=== PATIENT | female | born 1985 | race Caucasian/White ===

== ENCOUNTER 2019-04-23 09:31 | Emergency (ER) | payer BC ==
[~2019-04-23] VITALS: Ht 160 cm; Wt 84.5 kg
[2019-04-23 09:36] VITALS: BP 126/66; TEMP 97.6
[2019-04-23] MEDS ORDERED: GLUCOPHAGE1000 MG PO (09:59)
[2019-04-23] MEDS ORDERED: TYLENOL 325MG325 MG PO (10:00)
[2019-04-23] MEDS ORDERED: PRENATAL (10:00)
[2019-04-23 12:07] VITALS: PULSE 101
== END 2019-04-23 12:07 | disposition home or self-care (01) ==
LOC: COL.ER 09:31
DX: O99.351 Diseases of the nervous system complicating pregnancy, first trimester (principal); G43.909 Migraine, unspecified, not intractable, without status migrainosus; Z79.82 Long term (current) use of aspirin; Z3A.10 10 weeks gestation of pregnancy; Z79.84 Long term (current) use of oral hypoglycemic drugs
CPT/HCPCS: J1200

== ENCOUNTER 2019-06-09 01:06 | Emergency (ER) | payer BC ==
[~2019-06-09] VITALS: Ht 160 cm; Wt 83.2 kg
[~2019-06-09 01:06] MED LIST: GLUCOPHAGE1000 MG PO; PRENATAL; TYLENOL 325MG325 MG PO
[2019-06-09 01:20] VITALS: TEMP 97.4
[2019-06-09 01:48] LABS: COLLECTION METHOD CLEAN CATCH
[2019-06-09 01:55] LABS: MUCOUS Present /lpf; PH 5 (5-8); URINE APPEARANCE Cloudy; URINE BACTERIA Rare /hpf; URINE BILIRUBIN Negative (NEGATIVE); URINE BLOOD 3+ (NEGATIVE); URINE COLOR Yellow; URINE GLUCOSE Negative (NEGATIVE); URINE KETONE 1+ (NEGATIVE); URINE LEUKOCYTE ESTERASE Trace (NEGATIVE); URINE NITRATE Negative (NEGATIVE); URINE PROTEIN(semi-quant) 2+ (NEGATIVE); URINE RBC >50 /hpf; URINE UROBILINOGEN Negative (NEGATIVE)
[2019-06-09 02:08] LABS: BASO # 0.1 (0.0-0.2); BASO % 0.4 % (0.0-2.0); EOS # 0.1 (0.0-0.7); EOS % 0.6 % (0-4.0); GRAN # 10.6 (1.4-6.5); GRAN % 73.3 % (42.2-75.2); HEMATOCRIT 38.5 % (37.0-47.0); HEMOGLOBIN 12.5 g/dl (12.5-16.0); LYMPH # 2.8 (1.2-3.4); LYMPH % 19.4 % (20.0-51.0); MEAN CELL VOLUME 75 fl (80.0-100.0); MEAN CORPUSCULAR HEMOGLOBIN 24 pg (27.0-31.0); MEAN CORPUSCULAR HGB CONC 33 g/dl (33.0-37.0); MEAN PLATELET VOLUME 10.7 fl (7.4-10.4); MONO # 0.8 (0.1-0.6); MONO % 5.4 % (1.7-9.3); PLATELET COUNT 281 K/mm3 (130-400); RED BLOOD COUNT 5.13 M/mm3 (4.10-5.30); REDCELL DISTRIBUTION WIDTH-CV 13.8 % (11.5-14.5)
[2019-06-09 02:16] LABS: CREATININE, serum 0.38 (0.52-1.25); POTASSIUM 3.2 mmol/L (3.4-5.0)
[2019-06-09] MEDS ORDERED: OMNICEF 300MG300 MG PO (02:23)
[2019-06-09 02:46] VITALS: BP 138/80; PULSE 88
== END 2019-06-09 02:58 | disposition home or self-care (01) ==
LOC: COL.ER 01:06
PROVIDERS: Physician Assistant
DX: O26.892 Other specified pregnancy related conditions, second trimester (principal); N30.90 Cystitis, unspecified without hematuria; Z3A.16 16 weeks gestation of pregnancy
CPT/HCPCS: J0696

== ENCOUNTER 2019-06-23 11:56 | Emergency (ER) | payer BC ==
[~2019-06-23] VITALS: Ht 160 cm; Wt 82.7 kg
[~2019-06-23 11:56] MED LIST changes: +OMNICEF 300MG300 MG PO
[2019-06-23 12:31] VITALS: BP 128/74; TEMP 98
[2019-06-23 12:51] LABS: COLLECTION METHOD CLEAN CATCH
[2019-06-23 13:01] LABS: MUCOUS Present /lpf; PH 5 (5-8); SQUAMOUS EPITHELIAL 0-2 /hpf; URINE APPEARANCE Clear; URINE BACTERIA None Seen /hpf; URINE BILIRUBIN Negative (NEGATIVE); URINE BLOOD Negative (NEGATIVE); URINE COLOR Yellow; URINE GLUCOSE Negative (NEGATIVE); URINE KETONE Trace (NEGATIVE); URINE LEUKOCYTE ESTERASE Negative (NEGATIVE); URINE NITRATE Negative (NEGATIVE); URINE PROTEIN(semi-quant) Negative (NEGATIVE); URINE RBC 0-2 /hpf; URINE UROBILINOGEN Negative (NEGATIVE)
[2019-06-23 13:24] LABS: HEMOGLOBIN 13.5 g/dl (12.5-16.0); MEAN CELL VOLUME 76 fl (80.0-100.0); MEAN CORPUSCULAR HEMOGLOBIN 25 pg (27.0-31.0); MEAN CORPUSCULAR HGB CONC 32 g/dl (33.0-37.0); MEAN PLATELET VOLUME 11.1 fl (7.4-10.4); PLATELET COUNT 308 K/mm3 (130-400); RED BLOOD COUNT 5.51 M/mm3 (4.10-5.30); REDCELL DISTRIBUTION WIDTH-CV 13.7 % (11.5-14.5)
[2019-06-23 13:33] LABS: ALBUMIN 4.1 gm/dL (3.5-5.0); BILIRUBIN,TOTAL 0.8 mg/dL (0.0-1.0); CALCIUM 8.7 mg/dL (8.4-10.2); CREATININE, serum 0.43 (0.52-1.25); POTASSIUM 4.1 mmol/L (3.4-5.0); TOTAL PROTEIN 7.8 gm/dL (6.4-8.2)
[2019-06-23 14:18] LABS: BAND 27 % (0-10); LYMPHOCYTE 2 % (20.0-51.0); NEUTROPHILS 67 % (42.0-75.2)
[2019-06-23 14:19] LABS: PLATELET ESTIMATE NORMAL (NORMAL)
[2019-06-23] MEDS ORDERED: ZOFRAN ODT4 MG PO (14:44)
[2019-06-23 15:06] VITALS: PULSE 93
== END 2019-06-23 15:06 | disposition home or self-care (01) ==
LOC: COL.ER 11:56
PROVIDERS: Emergency Medicine
DX: O21.9 Vomiting of pregnancy, unspecified (principal); O24.112 Pre-existing type 2 diabetes mellitus, in pregnancy, second trimester; Z79.84 Long term (current) use of oral hypoglycemic drugs; Z3A.18 18 weeks gestation of pregnancy
CPT/HCPCS: J2550; J7030

== ENCOUNTER → 2019-08-16 | Outpatient (CLI) | payer BC, MEDICAID ==
[~2019-08-16] MED LIST changes: +BASAGLAR K100 UNIT/1 SQ; +NOVOLOG FLEX100 U/ML SQ; +ZOFRAN ODT4 MG PO
== END ==
LOC: DIA.ED 13:35
DX: O24.419 Gestational diabetes mellitus in pregnancy, unspecified control (principal); Z79.4 Long term (current) use of insulin
CPT/HCPCS: G0108

== ENCOUNTER 2019-10-07 12:27 | Outpatient (CLI) | payer BC, MEDICAID ==
[2019-10-07] VITALS (18 sets, daily range): BP systolic 145–174; BP diastolic 68–90; PULSE 64–101; TEMP 97.6
[~2019-10-07] VITALS: Ht 160 cm; Wt 90.7 kg
--- NOTE | 2019-10-07 12:45 | NUR ---
G1 at 33.3 weeks gestation to LDR4 with c/o increased blood pressure at home and left sided arm pain and generalized body pain. Patient reports good movement and denies leaking of fluid or vaginal bleeding. Patient is an IDGDM. Patient states that she recieved betamethosone in the office on 10/02 and 10/03 and that she was prescribed bethamethasone for home use that she picked up from the pharmacy today. She states that she gave herself 1 mg of bethamethasone with her insulin needle around 9389-0499 today in her left arm. She states that she wasn't given instructions on how to use this medication at home. EFMs explained and applied. FHR reactive. No CTX per toco or patient reports. Blood pressure 155/74 with a repeat of 148/68. Dr. Miranda called and updated on the above. Orders for a CBC, CMP and CC UA received. Instruct patient to stop bethamethasone.
[2019-10-07 13:35] LABS: COLLECTION METHOD CLEAN CATCH
[2019-10-07 13:39] LABS: HEMOGLOBIN 11.9 g/dl (12.5-16.0); MEAN CELL VOLUME 77 fl (80.0-100.0); MEAN CORPUSCULAR HEMOGLOBIN 25 pg (27.0-31.0); MEAN CORPUSCULAR HGB CONC 32 g/dl (33.0-37.0); MEAN PLATELET VOLUME 11.3 fl (7.4-10.4); PLATELET COUNT 212 K/mm3 (130-400); RED BLOOD COUNT 4.78 M/mm3 (4.10-5.30); REDCELL DISTRIBUTION WIDTH-CV 14.7 % (11.5-14.5)
[2019-10-07 13:41] LABS: HEMATOCRIT 36.7 % (37.0-47.0)
[2019-10-07 13:46] LABS: PH 6 (5-8); SQUAMOUS EPITHELIAL 0-2 /hpf; URINE APPEARANCE Clear; URINE BACTERIA Rare /hpf; URINE BILIRUBIN Negative (NEGATIVE); URINE BLOOD Negative (NEGATIVE); URINE COLOR Straw; URINE GLUCOSE Negative (NEGATIVE); URINE KETONE Negative (NEGATIVE); URINE LEUKOCYTE ESTERASE Negative (NEGATIVE); URINE NITRATE Negative (NEGATIVE); URINE PROTEIN(semi-quant) Negative (NEGATIVE); URINE RBC 0-2 /hpf; URINE UROBILINOGEN Negative (NEGATIVE); URINE WBC 0-2 /hpf
[2019-10-07 13:47] LABS: ALBUMIN 3.3 gm/dL (3.5-5.0); BILIRUBIN,TOTAL 0.5 mg/dL (0.0-1.0); CALCIUM 8.3 mg/dL (8.4-10.2); CREATININE, serum 0.58 (0.52-1.25); TOTAL PROTEIN 6.4 gm/dL (6.4-8.2)
--- NOTE | 2019-10-07 16:28 | NUR ---
EMS at bedside. Pt taken off monitors and prepped for transfer. 1638-Pt leaves unit via EMS.
--- NOTE | 2019-10-10 09:58 | NUR ---
RECEIVING FACILITY NOTIFIED OF NEGATIVE COVID-19 SCREEN.
== END 2019-10-07 16:38 ==
LOC: LDRO 12:27 → LDR 12:52 → LDRO 12:52 → LDR 12:53 → LDRO 16:38
PROVIDERS: Obstetrics & Gynecology
DX: O16.3 Unspecified maternal hypertension, third trimester (principal); Z3A.33 33 weeks gestation of pregnancy
CPT/HCPCS: OP; J3475; J7120